=== PATIENT | female | born 1980 | race Caucasian/White ===

== ENCOUNTER 2025-03-06 11:15 | Day surgery (SDC) | payer BC ==
[2025-03-05 12:40] VITALS: BMI 35.2
[2025-03-06] MEDS ORDERED: LACTATED RINGERS 1,000 ML IV SCH (11:28)
[2025-03-06 11:41] VITALS: TEMP 98
[2025-03-06] MEDS: LACTATED RINGERS 1,000 ML IV ONE (11:41)
[2025-03-06] MEDS ORDERED: PROPOFOL 10 MG/ML 20 ML VIAL IV ONE (12:26)
[2025-03-06] MEDS ORDERED: LIDOCAINE 1% INJ 10MG/ML (20 ML MDV) ONE (12:26)
[2025-03-06 12:46] VITALS: PULSE 74; RESP 16
--- NOTE | 2025-03-06 12:59 | P.PCN ---
Date of Procedure: 03/06/25 Procedure(s) Performed: Preoperative Dx: Epigastric pain Postoperative Dx: Gastritis, small gastric polyp Procedure: EGD with Bx Anesthesia: Sedation Endoscopist: Dr. Chavez Specimens: Antrum, gastric polyp, body of stomach, duodenum Endoscopic Procedure: The patient was on the endoscopy table in the left decubitus position. The Olympus gastroscope was inserted into the oropharynx and passed under direct visualization to the region of the third portion of the duodenum. From that point the scope was slowly withdrawn inspecting all surfaces carefully. There were no neoplastic inflammatory or polypoid lesions throughout the duodenum. A biopsy of the duodenum took place to evaluate for celiac disease. The pylorus was widely patent. The stomach was carefully inspected. There was diffuse gastritis present. Mucosa of the stomach appeared mildly edematous. Biopsy of the antrum and body of the stomach took place. Patient had a small gastric polyp that was also biopsied retroflexion revealed a normal hiatus. The esophagus was then carefully examined. There were no neoplastic inflammatory or polypoid lesions throughout the visualized esophagus. The patient was then taken to the recovery room in stable condition per anesthesia guidelines. Recommendations: Continue antiacid therapy. Monitor symptoms. If symptoms persist consider gastric emptying study or GI consult.
[2025-03-06 13:03] VITALS: BP 134/64
== END 2025-03-06 13:25 | disposition home or self-care (01) ==
LOC: ORWHC2ENDO 11:15
PROVIDERS: ATTEND Surgery
DX: K29.50 Unspecified chronic gastritis without bleeding (principal); K31.7 Polyp of stomach and duodenum; K31.9 Disease of stomach and duodenum, unspecified; G25.81 Restless legs syndrome; F41.0 Panic disorder [episodic paroxysmal anxiety]; K21.9 Gastro-esophageal reflux disease without esophagitis; Z88.0 Allergy status to penicillin; Z91.040 Latex allergy status; Z88.8 Allergy status to other drugs, medicaments and biological substances; Z79.899 Other long term (current) drug therapy
CPT/HCPCS: 81025; 88305; 43239; J2003; J2704